=== PATIENT | male | born 1945 | race Caucasian/White ===

== ENCOUNTER → 2022-06-21 12:50 | Outpatient (BNVA) | payer OTHER, SELFPAY | PROVIDERS: PCP Family Medicine; Referring Provider Family Medicine; Visit Provider Specialist | DX: G62.89 Other specified polyneuropathies (principal); G56.03 Carpal tunnel syndrome, bilateral upper limbs | CPT/HCPCS: 95913 ==

== ENCOUNTER → 2022-07-15 10:40 | Outpatient (BNVA) | payer OTHER, SELFPAY | PROVIDERS: PCP Family Medicine; Visit Provider Urology | DX: N40.1 Benign prostatic hyperplasia with lower urinary tract symptoms (principal); N13.8 Other obstructive and reflux uropathy; R31.0 Gross hematuria; N52.9 Male erectile dysfunction, unspecified | CPT/HCPCS: 51798; 52000; 81003; 87086; 88112; 99204 ==

== ENCOUNTER → 2022-08-08 09:16 | Outpatient (BNVA) | payer OTHER, SELFPAY | PROVIDERS: PCP Family Medicine; Visit Provider Student in an Organized Health Care Education/Training Program | DX: G56.03 Carpal tunnel syndrome, bilateral upper limbs (principal); M18.9 Osteoarthritis of first carpometacarpal joint, unspecified; G56.22 Lesion of ulnar nerve, left upper limb | CPT/HCPCS: 73130; 99204 ==

== ENCOUNTER 2022-08-17 11:22 | Outpatient (CLI) | payer OTHER, SELFPAY ==
--- NOTE | 2022-08-17 12:30 | CTR_ITS ---
PROCEDURE INFORMATION: Exam: CT Abdomen And Pelvis Without And With Contrast Exam date and time: 08/17/2022 12:39 PM Age: 77 years old Clinical indication: Other: Gross hematuria; Prior surgery; Surgery type: Hernia; Additional info: Gross hematuria, CT abd/pel w/wo @ 12:30pm on 08/17/22, appt to follow TECHNIQUE: Imaging protocol: Computed tomography of the abdomen and pelvis without and with contrast. 3D rendering (Not supervised by radiologist): MIP and/or 3D reconstructed images were created by the technologist. Radiation optimization: All CT scans at this facility use at least one of these dose optimization techniques: automated exposure control; mA and/or kV adjustment per patient size (includes targeted exams where dose is matched to clinical indication); or iterative reconstruction. Contrast material: OMNI 350; Contrast volume: 100 ml; Contrast route: INTRAVENOUS (IV); REPORTING DATA: Count of CT and Cardiac NM exams in prior 12 months: This patient has received 0 known CTs and 0 known cardiac nuclear medicine studies in the 12 months prior to the current study. COMPARISON: No relevant prior studies available. RADIATION DOSE METRICS: Total DLP (mGy-cm): 975.22 FINDINGS: Lungs: Emphysematous changes. Coronary arteries: Coronary artery atherosclerotic calcifications suspected. Liver: Normal. No mass. Gallbladder and bile ducts: Normal. No calcified stones. No ductal dilation. Pancreas: Normal. No ductal dilation. Spleen: Normal. No splenomegaly. Adrenal glands: Normal. No mass. Kidneys and ureters: Right kidney punctate nonobstructing calyceal stone. Bilateral renal cysts, left greater than right. Right ureter not opacified, perhaps due to peristalsis. Stomach and bowel: Constipation. Appendix: No evidence of appendicitis. Intraperitoneal space: Unremarkable. No free air. No significant fluid collection. Vasculature: Unremarkable. No abdominal aortic aneurysm. Lymph nodes: Unremarkable. No enlarged lymph nodes. Urinary bladder: Mild right urinary bladder wall thickening may be due to nondistention, a cystitis is also a consideration, please correlate clinically. Reproductive: Prostate gland enlarged. Bones/joints: Unremarkable. No acute fracture. Soft tissues: Unremarkable. CT/CT abdomen pelvis wo/w [address]20 IMPRESSION: 1. Negative for hydronephrosis or definite source of provided history of gross hematuria. 2. Mild right urinary bladder wall thickening may be due to nondistention, a cystitis is also a consideration, please correlate clinically. 3. Emphysematous changes. 4. Coronary artery atherosclerotic calcifications suspected. 5. Right kidney punctate nonobstructing calyceal stone. 6. Bilateral renal cysts, left greater than right. 7. Prostate gland enlarged. 8. Right ureter not opacified, perhaps due to peristalsis. COMMENTS: Consistent with the [employer]'s Incidental Findings Committee white paper (J Am Piedad Radiol 2018): Any incidental renal lesion less than 1 cm or classified as too small to characterize, or any incidental cystic renal lesion characterized as simple-appearing, is likely benign. No follow-up imaging is recommended for these lesions per consensus recommendations based on imaging criteria.
[2022-08-17] MEDS: iohexol 350 mg/mL 500 mL Btl (per mL) IV (12:43)
== END 2022-08-17 11:23 | disposition home or self-care (01) ==
PROVIDERS: PCP Family Medicine; Visit Provider Urology
DX: Z79.899 Other long term (current) drug therapy (principal); M79.643 Pain in unspecified hand; R31.0 Gross hematuria; N20.0 Calculus of kidney; N40.0 Benign prostatic hyperplasia without lower urinary tract symptoms; M25.50 Pain in unspecified joint; M15.4 Erosive (osteo)arthritis; G56.03 Carpal tunnel syndrome, bilateral upper limbs; G56.22 Lesion of ulnar nerve, left upper limb
CPT/HCPCS: 36415; 51741; 51798; 73130; 73630; 74178; 82565; 84520; 99204; 99213; Q9967

== ENCOUNTER 2022-08-23 08:36 | Day surgery (SDC) | payer OTHER, SELFPAY ==
[2022-08-22 14:18] VITALS: BMI 21.4
[2022-08-23] VITALS (7 sets, daily range): BP systolic 127–151; BP diastolic 50–65; PULSE 47–59; RESP 16–20; TEMP 36.1–36.4; O2SAT 93–100
[2022-08-23] MEDS: sodium chloride 0.9% 1,000 ML 30 ML IV (09:13)
[2022-08-23] MEDS: acetaminophen 1,000 MG/100 ML PIGGYBACK 400 MG IV (09:14)
[2022-08-23] MEDS: ketorolac 30 mg/mL INJ IVP (09:14)
--- NOTE | 2022-08-23 09:37 | W.PM.OPSUD ---
Surgery/Procedure H&P Update DATE OF PROCEDURE: August 23, 2022 DATE H&P PERFORMED: 08/08/22 CHANGES TO PREVIOUS DOCUMENTATION: None PREOP DIAGNOSIS: Left carpal tunnel syndrome, left cubital tunnel syndrome, right CMC thumb PRIMARY INDICATION FOR PROCEDURE: Left carpal tunnel syndrome, left cubital tunnel syndrome, right thumb CMC joint arthritis PLANNED PROCEDURE: Operation Date: 08/23/22 10:25 Proposed Procedures p Left carpal tunnel release 49399 and left cubital tunnel release 84709 with a right carpometacarpal joint cortisone injection. 19581,G56.03, G56.23,M18.9(Left) - DO yuridia Sanchez Cubital Tunnel Release(Left) - DO yuridia Sanchez Cortisone Injection Carpometacarpal Joint Cortisone Injection(Left) - Eliceo Campbell DO
[2022-08-23] MEDS: ceFAZolin 2,000 MG in sodium chloride 0.9% (plus) 50 ML 100 MG IV (09:45)
--- NOTE | 2022-08-23 10:07 | P.ANESASSM_ITS ---
Pre-Anesthetic Assessment Height/Weight: Height 1.8 m Weight 69.853 kg Temp Pulse Resp BP Pulse Ox O2 Del Method 97.6 F 56 L 18 151/65 98 08/23/22 08:54 08/23/22 08:54 08/23/22 08:54 08/23/22 08:54 08/23/22 08:54 08/23/22 08:59 Preop Diagnosis: Left carpal tunnel syndrome, left cubital tunnel syndrome, right CMC thumb Operation Date: 08/23/22 10:25 Proposed Procedures p Left carpal tunnel release 14928 and left cubital tunnel release 36334 with a right carpometacarpal joint cortisone injection. 28944,G56.03, G56.23,M18.9(Left) - Eliceo Shannan, DO s Cubital Tunnel Release(Left) - Eliceo Shannan, DO s Cortisone Injection Carpometacarpal Joint Cortisone Injection(Left) - Eliceo [place], DO Familial anesthetic complications: PONV Was Beta Haroldo taken within 24 hours: N/A Was Clonidine taken within 24 hours: N/A Last intake: Intake Last Liquid Date 08/22/22 Last Liquid Time 19:00 Last Solid Date 08/22/22 Last Solid Time 19:00 Social No alcohol and No tobacco Exam alert, oriented x 3, clear to auscultation bilaterally and regular rate & rhythm Airway Submandibular: within normal limits Cervical ROM: within normal limits Mallampati: Class II Dentition: partials Musc/skel Osteoarthritis/DJD Neuropsych Neuropathy Anesthetic Plan ASA status: 2 Anesthesia: Choice Medications/Allergies Home Medications Medication Instructions Recorded Confirmed Last Taken Type CBD + Joint Health 1 tab PO BID 06/21/22 08/23/22 08/22/22 History ezetimibe 10 mg tablet 10 mg PO DAILY 06/21/22 08/23/22 08/22/22 History multivitamin 2 tab PO DAILY 06/21/22 08/23/22 08/22/22 History zinc acetate 50 mg (zinc) capsule 50 mg PO DAILY 06/21/22 08/23/22 08/22/22 Hi story (Galzin) cinnamon bark extract 500 mg tablet 1,000 mg PO DAILY 07/15/22 08/23/22 08/22/22 History tadalafil 20 mg tablet 20 mg PO DAILY PRN sexual activity 07/15/22 08/23/22 08/22/22 Rx #20 tabs tamsulosin 0.4 mg capsule 0.4 mg PO DAILY #90 caps 07/15/22 08/23/22 08/22/22 Rx omega-3 417 mg-dha 120 mg-epa-276 1 cap PO DAILY 08/08/22 08/23/22 08/22/22 History mg-fish oil 600 mg-tumeric capsule kramton 1 tab PO DAILY 08/17/22 08/23/22 08/22/22 History Allergies Allergy/AdvReac Type Severity Reaction Status Date / Time No Known Allergies Allergy Verified 08/23/22 08:51 Current Medications Generic Name Dose Route Start Last Admin Trade Name Freq PRN Reason Stop Dose Admin Sodium Chloride 1,000 mls @ 30 mls/hr 08/23/22 08:45 08/23/22 09:13 Sodium Chloride 0.9% IV 08/24/22 08:44 30 mls/hr .Q24H HUNTER Administration PFSH Anesthesia Medical History Actinic keratosis Benign prostatic hyperplasia without lower urinary tract symptoms BPH loc w urin obs/LUTS Erosive osteoarthritis of both hands Gross hematuria Hyperlipidemia Joint pain Male erectile dysfunction, unspecified Osteoarthritis Polyarthralgia Pre-diabetes Unspecified sensorineural hearing loss Surgical History H/O inguinal hernia repair Family History Father Ceci Gehrig disease Mother No problems noted. Denies family history of Rheumatoid arthritis Diabetes Lupus CAD (coronary artery disease) Chronic kidney disease (CKD) Cancer Stroke Social History Smoking and tobacco status: former smoker Alcohol intake: current Alcohol intake frequency: holidays/special occasions only Marital status: Current occupational status: retired Data Anesthesia Cardiac Studies: No Data to Display
[2022-08-23] MEDS: triamcinolone 40 mg/mL SDV IM (10:14)
[2022-08-23] MEDS: lidocaine-epi 1% 20 mL INJ INJECTION (10:15)
--- NOTE | 2022-08-23 11:08 | P.OP_ITS ---
Operative Report Date of procedure: August 23, 2022 Pre-op diagnosis: Preop Diagnosis Left carpal tunnel syndrome, left cubital tunnel syndrome, right CMC thumb basal joint arthritis Post-op diagnosis: Same Procedure done: Left carpal tunnel release Left cubital tunnel tunnel release and ulnar nerve neurolysis Right thumb basal joint CMC corticosteroid injection Surgeon: Eliceo Campbell DO Estimated blood loss: 10 mL 36 minutes IV fluids: 600 mL Complications: None Findings: See operative report narrative Condition: stable Disposition: same day Procedure: Brief History: Patient's been seen and worked up in the outpatient setting and findings consistent with preoperative diagnosis.? Patient has left carpal tunnel syndrome as well as left cubital tunnel syndrome which has been worked up in the outpatient setting has physical exam findings consistent with this as well as confirmatory nerve conduction/EMG nerve conduction study consistent with bilateral carpal tunnel and left cubital tunnel syndrome.? Patient also has pronounced right thumb CMC joint arthritis and through shared decision-making he would rather have an injection performed while he is asleep for his surgery. As result through shared decision making agreed to proceed with a right thumb CMC basal joint corticosteroid injection while under anesthesia for the left carpal tunnel and left cubital tunnel release we talked about treatment options as far as nonoperative and operative intervention.? Understands risk benefits complication alternatives surgical nonsurgical treatment options.? Understanding his risks he agrees to proceed with surgical intervention for left carpal tunnel release, left cubital tunnel release, right thumb basal joint corticosteroid injection. Understanding these risks he agrees to proceed with surgery.? Consent obtained in office. Procedure: Patient seen evaluate in the preoperative holding area.? Consent was reviewed and signed with patient.? Correct extremity marked.? Patient seen evaluated by anesthesia department once cleared for surgery was then taken back to the operative suite placed in supine position all bony prominences well-padded patient properly secured to bed.? Left upper extremity placed onto a left armboard.? Nonsterile tourniquet applied left upper arm.? Patient then underwent anesthesia per the anesthesia department.? Patient's left upper extremity was then prepped and draped in standard orthopedic fashion.? Final timeout performed.? Patient received appropriate preoperative antibiotics. Esmarch was used exsanguinate the left upper extremity.? Tourniquet was insufflated to 250 mmHg. I started with the carpal tunnel release first.? I made a standard open carpal tunnel release starting with the distal most extent in the palm at the Martin's cardinal line and the incision line was made in line with the fourth ray and ended just distal to the wrist crease.? Sharp scalpel incision was made through skin and subcutaneous tissue I then utilizing self retainer then began to dissect with dissection scissors split longitudinally the palmar fascia.? Next I then utilizing my assistant activities director Lorraine retractors subsequently utilizing scalpel feathered through the palmaris brevis as well as through the transverse carpal ligament distally.? Once I encountered the floor of the transverse carpal ligament and entered into the carpal tunnel I then switched to dissection scissors.? Carefully released the distal extent of the transverse carpal ligam ent to the palmar fat.? Care was to protect the recurrent branch and not injured this during this part of the case.? Next I then placed a [place] underneath the transverse carpal ligament proximally to protect the nerve in the carpal tunnel contents.? And then I subsequently under loupe magnification utilize my dissection scissors to release the transverse carpal ligament into the antebrachial fascia under direct visualization with care to keep my scissors with a curved ulnarly away from the palmar cutaneous branch.? The transverse carpal was then completely decompressed proximally and a [place] was then placed both distally and proximally throughout the carpal tunnel and had complete decompression of the nerve.? The nerve did appear to have hourglass shape as it went through the carpal tunnel.? With significant irritation noted around the nerve.? No masses were noted within the contents of the carpal tunnel.? This completed the carpal tunnel release and then I subsequently irrigated the wound bed and placed a wet Ray-Latanya into the incision for later closure. Next marked out the landmarks of the left elbow of the medial epicondyle and olecranon and made a curvilinear incision following the course of the ulnar nerve at the medial aspect of the elbow.? Sharp scalpel incision was made through skin and subcutaneous tissue.? Next I switched to Littler dissection scissors and spread in plane of the medial antebrachial cutaneous nerve branching which was protected throughout this part of the dissection.? Then I directly came down over the fascia and identified the 2 heads of the FCU fascia and split this right in the middle and subsequently identified my ulnar nerve distally.? This was then completely released distally under direct visualization and loupe magnification.? Once the nerve was then identified I then subsequently tracked this proximally and released this through Ingram's ligament as well as complete decompression of the nerve proximally all the way past the interm uscular septum.? The nerve was completely released and decompressed the area of entrapment there was severely noted was at the Ingram's ligament.? The nerve had noticeable scarring and irritation noted around the Ingram's ligament.? This point time the nerve completely decompressed both proximally and distally. Ulnar nerve neurolysis performed and completed both proximally and distally with dissection scissors. I then took the elbow through range of motion and there was no instability or subluxating of the ulnar nerve.? This completed cubital tunnel release.? Next the wound bed was thoroughly irrigated.? Tourniquet was deflated.? Hemostasis was satisfactory at the cubital tunnel release surgery site. I then inspected the carpal tunnel incision and this was found to have satisfactory hemostasis and all this was maintained through bipolar electrocautery.? At this point time I sequentially closed cubital tunnel site with 3-0 Vicryl suture in a running horizontal mattress nylon stitch.? ? The carpal tunnel release surgery was then closed in standard interrupted mattress fashion.? Dressing was Xeroform 4 x 4's ABD Curlex soft roll and an Myron wrap has a bulky soft dressing.? Next I proceeded with right thumb basal joint corticosteroid injection. Right thumb was identified. This was then prepped in standard orthopedic fashion. I then utilizing our predrawn up small joint corticosteroid injection subsequently injected the right thumb basal joint. Patient tolerated this without complications. Band-Aid was then applied. Patient was then awakened from anesthesia and taken to PACU in stable condition. Disposition: Patient taken to PACU in stable condition recovering well.? Patient will receive appropriate discharge instructions as well as pain medication postoperatively.? We will follow-up with me in the office in 2 weeks.? Patient understands agrees with current plan.? All questions answered.? He understands if any questions or concerns and contact the office for follow-up appointment..
--- NOTE | 2022-08-23 11:08 | P.OP_ITS ---
Brief Operative Note Date of procedure: 08/23/22 Pre-op diagnosis: Left carpal tunnel syndrome, left cubital tunnel syndrome, r ight thumb basa Post-op diagnosis: same (Right thumb basal joint arthritis) Procedure Done: Left carpal tunnel release Left cubital tunnel release Right thumb basal joint corticosteroid injection Surgeon: Eliceo Campbell Estimated blood loss (mL): 10 Complications: None Post-op Plan: Patient taken to PACU in stable condition recovering well. Dressings on in place clean dry intact will receive appropriate discharge instruction as well as pain medication postoperatively. Patient to follow-up with me in the office in 2 weeks. Condition: stable Disposition: same day Coding Level of Care Code Acute Code for Andrey Mcfarland
--- NOTE | 2022-08-23 11:08 | PM.PACU ---
PACU note Narrative: Patient taken to PACU in stable condition recovering well. Dressing on in place clean dry and intact patient is able to wiggle fingers. Fingertips warm well-perfused brisk capillary refill less than 2 seconds. Exam: awake Disposition: discharged
[2022-08-23] MEDS: HYDROcodone-acetaminophen 5-325 mg Tablet 1 TAB PO (11:52)
--- NOTE | 2022-08-23 16:20 | ANE.PACU2 ---
Inpatient post-anesthesia follow up: Airway intact: Yes Vital signs: Temperature 97.1 F Pulse Rate 56 Respiratory Rate 17 Blood Pressure 139/63 Pulse Oximetry 95 Oxygen Delivery Me thod Room Air Oxygen Flow Rate Fraction of Inspir ed Oxygen Hydration adequate: Yes Nausea and vomiting: No Pain level: 2 Mental status: Baseline
== END 2022-08-23 12:28 | disposition home or self-care (01) ==
PROVIDERS: PCP Family Medicine; Visit Provider Student in an Organized Health Care Education/Training Program
PROC: (CPT 64721; principal; 2022-08-23 10:15)
PROC: (CPT 64718; 2022-08-23 10:15)
PROC: (CPT 96372; 2022-08-23 10:15)
DX: G56.02 Carpal tunnel syndrome, left upper limb (principal); G56.22 Lesion of ulnar nerve, left upper limb; M13.842 Other specified arthritis, left hand; N40.1 Benign prostatic hyperplasia with lower urinary tract symptoms; N13.8 Other obstructive and reflux uropathy; E78.5 Hyperlipidemia, unspecified; Z87.891 Personal history of nicotine dependence
CPT/HCPCS: 64718; 64721; 96372; J0131; J0690; J1885; J2704; J2795; J3010; J3301; J3490; J7030

== ENCOUNTER → 2022-09-08 13:51 | Outpatient (BNVA) | payer OTHER, SELFPAY | PROVIDERS: PCP Family Medicine; Visit Provider Student in an Organized Health Care Education/Training Program | DX: G56.03 Carpal tunnel syndrome, bilateral upper limbs (principal); M18.9 Osteoarthritis of first carpometacarpal joint, unspecified; G56.22 Lesion of ulnar nerve, left upper limb | CPT/HCPCS: 99024 ==

== ENCOUNTER → 2022-10-26 10:37 | Outpatient (BNVA) | payer OTHER, SELFPAY | PROVIDERS: PCP Family Medicine; Visit Provider Internal Medicine Rheumatology | DX: M25.50 Pain in unspecified joint (principal); M15.4 Erosive (osteo)arthritis; G56.03 Carpal tunnel syndrome, bilateral upper limbs; G56.22 Lesion of ulnar nerve, left upper limb | CPT/HCPCS: 99214 ==

== ENCOUNTER → 2022-10-31 09:38 | Outpatient (BNVA) | payer OTHER, SELFPAY | PROVIDERS: PCP Family Medicine; Referring Provider Family Medicine; Visit Provider Psychiatry & Neurology Neurology | DX: M79.602 Pain in left arm (principal); R29.898 Other symptoms and signs involving the musculoskeletal system; S16.1XXA Strain of muscle, fascia and tendon at neck level, initial encounter; M19.012 Primary osteoarthritis, left shoulder; M19.011 Primary osteoarthritis, right shoulder; X58.XXXA Exposure to other specified factors, initial encounter | CPT/HCPCS: 99213 ==

== ENCOUNTER 2022-11-23 09:41 | Outpatient (CLI) | payer OTHER, SELFPAY ==
--- NOTE | 2022-11-23 10:06 | MR_ITS ---
WS: [id number] MRI CERVICAL SPINE NONCONTRAST TECHNIQUE: Sagittal T1, T2 and STIR imaging. Axial T2, gradient, and fiesta imaging. CLINICAL INFORMATION: SEVERE ARTHRITIS AND NARROWING SPACES COMPARISON: None. FINDINGS: Straightening of the normal cervical lordosis. Cord signal is normal. Prior congenital segmentation a nomaly C4-C5. Disc bulging worse at C3-C4 C5-C6 and C6-C7. C2-C3: Normal. C3-C4: Disc osteophyte complex with endplate ridging. Moderate LEFT and mild RIGHT bony foraminal ellen rowing. Moderate LEFT facet arthropathy. C4-C5: Prior congenital segmentation anomaly at this level. Rudimentary disc space. Congenital bony f usion posterior elements. Spinal canal and foramen are patent. Mild facet arthropathy. C5-C6: Disc osteophyte complex with endplate ridging. Mild central canal stenosis and slight indentat ion on cervical cord. Moderate to severe LEFT and mild to moderate RIGHT bony foraminal narrowing. Mo derate facet arthropathy. C6-C7: Disc osteophyte complex with endplate ridging. Mild central canal stenosis. Slight indentation on the RIGHT ventral cervical cord. Moderate LEFT and mild to moderate RIGHT bony foraminal narrowin g. Mild facet arthropathy. C7-T1: RIGHT pericentral disc osteophyte complex with slight indentation on the cervical cord. Mild t o moderate LEFT and no significant RIGHT foraminal narrowing. Spinal canal is patent. Visualized brain stem structures: Normal. Prevertebral soft tissues: Normal. MR/MR cervical spin wo con* [id number] IMPRESSION: 1. Straightening of the normal cervical lordosis with moderate spondylitic rishi nges. 2. 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 3. Mild central canal stenosis C3-C4 C5-C6 and C6-C7 due to small disc osteoph yte complexes. 4. Moderate to severe LEFT C5-C6 bony foraminal narrowing. 5. Moderate LEFT C3-C4, and LEFT greater than RIGHT C6-C7 bony foraminal narro wing. 6. Mild to moderate LEFT C7-T1 bony foraminal narrowing. 7. RIGHT pericentral protrusion at C7-T1 with slight contact of the RIGHT vent ral cervical cord.
== END 2022-11-23 09:42 | disposition home or self-care (01) ==
PROVIDERS: Visit Provider Family Medicine
DX: M48.02 Spinal stenosis, cervical region (principal)
CPT/HCPCS: 72141

== ENCOUNTER 2022-11-28 09:20 | Outpatient (RCR) | payer OTHER, SELFPAY | END 2022-12-26 23:59 | disposition home or self-care (01) | LOC: SPT 09:20 | PROVIDERS: PCP Family Medicine; Visit Provider Family Medicine | DX: M25.512 Pain in left shoulder (principal) | CPT/HCPCS: 97110; 97140; 97162 ==